=== PATIENT | male | born 1975 | race African-American/Black ===

== ENCOUNTER 2016-12-09 16:46 | Emergency (ER) | payer MEDICAID, OTHER ==
[~2016-12-09] VITALS: Ht 177.8 cm; Wt 113.0 kg
[~2016-12-09 16:46] MED LIST: HYDR12.54 PO
[2016-12-09] MEDS ORDERED: IBUPROFEN 600MG TABLET PO STA (18:28)
[2016-12-09 19:04] LABS: BASOPHILS % 0.8 % (0.0-2.0); EOSINOPHILS % 3.4 % (0.0-5.0); HEMATOCRIT. 43.2 % (42.0-52.0); HEMOGLOBIN. 14.7 g/dL (14.0-18.0); LYMPHOCYTES % 29.8 % (20.0-50.0); MEAN CORPUSCULAR HEMOGLOBIN 29.9 pg (28.0-32.0); MEAN CORPUSCULAR HGB CONC 34.1 g/dL (31.0-37.0); MEAN CORPUSCULAR VOLUME 87.8 fL (80.0-94.0); MEAN PLATELET VOLUME 8.3 fl (7.4-10.4); MONOCYTES % 7.8 % (2.0-8.0); NEUTROPHILS % 58.2 % (40.0-76.0); PLATELET 170 x1000/uL (130-400); RED BLOOD CELL COUNT 4.92 mill/uL (4.7-6.1); RED CELL DISTRIBUTION WIDTH 13.7 % (11.6-14.6); WHITE BLOOD COUNT 9.5 x1000/uL (4.5-11.0)
[2016-12-09 19:15] LABS: ANION GAP 11; CALCIUM 8.8 mg/dL (8.5-10.1); CARBON DIOXIDE 29 mEq/L (21-32); CHLORIDE 103 mEq/L (98-107); INDEX HEMOLYSI 1 (1-3); INDEX ICTERIC 1 (1-4); INDEX LIPEMIC 1 (1-3); UREA NITROGEN BLOOD 13 mg/dL (7-21); eGFR > 60 mL/min (>60)
[2016-12-09 20:45] VITALS: BP 125/87
== END 2016-12-09 20:45 | disposition home or self-care (01) ==
LOC: ER 16:46
DX: F41.0 Panic disorder [episodic paroxysmal anxiety] (principal); F43.0 Acute stress reaction; R11.2 Nausea with vomiting, unspecified; R51 Headache; I10 Essential (primary) hypertension
CPT/HCPCS: 36415; 80048; 85025; 99284

== ENCOUNTER 2017-10-11 11:42 | Emergency (ER) | payer MEDICAID ==
[~2017-10-11] VITALS: Ht 175.3 cm; Wt 127.0 kg
[2017-10-11] MEDS ORDERED: IPRATROPIUM BROMIDE (0.02%) 0.5MG/2.5ML NEB HHN STA (15:10)
[2017-10-11] MEDS ORDERED: ALBUTEROL (0.083%) 2.5MG/3ML NEB HHN STA (15:10)
[2017-10-11 15:42] LABS: BASOPHILS % 0.8 % (0.0-2.0); HEMATOCRIT. 44.9 % (42.0-52.0); LYMPHOCYTES % 30.7 % (20.0-50.0); MEAN CORPUSCULAR HEMOGLOBIN 29.4 pg (28.0-32.0); MEAN CORPUSCULAR VOLUME 88.2 fL (80.0-94.0); MEAN PLATELET VOLUME 7.7 fl (7.4-10.4); NEUTROPHILS % 57.5 % (40.0-76.0); PLATELET 199 x1000/uL (130-400); RED BLOOD CELL COUNT 5.09 mill/uL (4.7-6.1); RED CELL DISTRIBUTION WIDTH 13.7 % (11.6-14.6)
[2017-10-11 16:03] LABS: CARBON DIOXIDE 26 mEq/L (21-32); CHLORIDE 105 mEq/L (98-107)
[2017-10-11 16:10] LABS: TROPONIN I < 0.02 ng/mL (0.00-0.04)
[2017-10-11 17:41] VITALS: BP 131/79
== END 2017-10-11 17:50 | disposition home or self-care (01) ==
LOC: ER 14:41
DX: J06.9 Acute upper respiratory infection, unspecified (principal); R42 Dizziness and giddiness
CPT/HCPCS: 36415; 71045; 80053; 83880; 84484; 85025; 93005; 94640; 99285; J7611

== ENCOUNTER 2019-07-01 10:30 | Emergency (ER) | payer SELFPAY ==
[~2019-07-01] VITALS: Ht 175.3 cm; Wt 125.0 kg
[2019-07-01] MEDS ORDERED: ACETAMINOPHEN 500MG TABLET PO ONE (11:15)
[2019-07-01] MEDS ORDERED: IBUPROFEN 600MG TABLET PO ONE (11:15)
[2019-07-01 11:24] VITALS: BP 171/105
== END 2019-07-01 11:18 | disposition home or self-care (01) ==
LOC: ER 10:30
DX: K04.7 Periapical abscess without sinus (principal); I10 Essential (primary) hypertension
CPT/HCPCS: 99283

== ENCOUNTER 2023-10-29 09:48 | Emergency (ER) | payer SELFPAY ==
[~2023-10-29] VITALS: Ht 175.3 cm; Wt 108.9 kg
[2023-10-29 09:56] VITALS: TEMP 98.6; O2SAT 100
[2023-10-29 11:07] LABS: BASOPHILS % 0.6 % (0.0-2.0); EOSINOPHILS % 0.1 % (0.0-5.0); HEMATOCRIT. 49.9 % (42.0-52.0); HEMOGLOBIN. 16.4 g/dL (14.0-18.0); LYMPHOCYTES % 7.8 % (20.0-50.0); MEAN CORPUSCULAR HEMOGLOBIN 30.7 pg (28.0-32.0); MEAN CORPUSCULAR HGB CONC 32.9 g/dL (31.0-37.0); MEAN CORPUSCULAR VOLUME 93.5 fL (80.0-94.0); MEAN PLATELET VOLUME 7.5 fl (7.4-10.4); MONOCYTES % 2.5 % (2.0-8.0); PLATELET 258 x1000/uL (130-400); RED BLOOD CELL COUNT 5.33 mill/uL (4.7-6.1); RED CELL DISTRIBUTION WIDTH 13.3 % (11.6-14.6); WHITE BLOOD COUNT 15.3 x1000/uL (4.5-11.0)
[2023-10-29 11:10] LABS: ALANINE AMINOTRANSFERASE 45 IU/L (10-49); ALBUMIN 4.7 g/dL (3.2-4.8); ASPARTATE AMINOTRANSFERASE 39 IU/L (<34); BILIRUBIN TOTAL 0.6 mg/dL (0.1-1.0); CALCIUM 9.7 mg/dL (8.7-10.4); CARBON DIOXIDE 20 mEq/L (21-32); CHLORIDE 104 mEq/L (98-107); CREATININE 0.8 mg/dL (0.6-1.3); GLUCOSE 123 mg/dL (70-105); POTASSIUM 3.7 mEq/L (3.5-5.1); PROTEIN TOTAL 8.3 g/dL (6.0-8.3); SODIUM 136 mEq/L (136-145); UREA NITROGEN BLOOD 7 mg/dL (9-23)
[2023-10-29] MEDS ORDERED: FAMOTIDINE 20MG/2ML VIAL IV ONE (12:00)
[2023-10-29] MEDS ORDERED: DICYCLOMINE HCL 10MG/ML 2ML VIAL IM ONE (12:00)
[2023-10-29] MEDS ORDERED: MAGNESIUM/ALUMINUM HYDROXIDE/SIMETHICONE 30ML UDC PO ONE (12:00)
[2023-10-29] MEDS ORDERED: SODIUM CHLORIDE 0.9% 1,000 ML IV ONE (12:00)
[2023-10-29] MEDS ORDERED: ONDANSETRON HCL 4MG/2ML INJ IV ONE (12:00)
[2023-10-29 13:40] LABS: CLARITY URINE CLEAR (CLEAR); COLOR URINE YELLOW (YELLOW); GLUCOSE URINE NEGATIVE (NEGATIVE); KETONES URINE 2+ (NEGATIVE); LEUKOCYTE ESTERASE URINE NEGATIVE (NEGATIVE); NITRITE URINE NEGATIVE (NEGATIVE); OCCULT BLOOD URINE NEGATIVE (NEGATIVE); PH URINE >=9.0 (4.5-8.0); PROTEIN URINE 1+ (NEGATIVE); SPECIFIC GRAVITY URINE 1.025 (1.005-1.030)
[2023-10-29] MEDS ORDERED: KETOROLAC 30MG/ML VIAL IV ONE (13:45)
[2023-10-29] MEDS ORDERED: FAMOTIDINE 20MG/2ML VIAL IV NR (13:49)
[2023-10-29] MEDS ORDERED: MAGNESIUM/ALUMINUM HYDROXIDE/SIMETHICONE 30ML UDC PO NR (13:50)
[2023-10-29] MEDS ORDERED: KETOROLAC 30MG/ML VIAL IV NR (13:50)
[2023-10-29] MEDS ORDERED: ONDANSETRON HCL 4MG/2ML INJ IV NR (13:51)
[2023-10-29 13:58] LABS: HYALINE CASTS URINE 0-5 /lpf; MUCUS URINE 3+ /lpf (NONE/TRACE)
[2023-10-29 13:59] LABS: SQUAMOUS EPITHELIAL CELL URINE FEW /lpf (RARE/1+); WBC URINE 0-2 /hpf (0-2)
[2023-10-29 14:00] LABS: BACTERIA URINE TRACE; CALCIUM OXALATE CRYSTALS URINE 1+ /lpf
[2023-10-29 14:06] VITALS: BP 160/132; PULSE 95; RESP 16
[2023-10-29] MEDS ORDERED: IOHEXOL-300 100 ML BOTTLE ONE (15:19)
== END 2023-10-29 17:08 | disposition home or self-care (01) ==
LOC: ER 09:48
DX: K29.70 Gastritis, unspecified, without bleeding (principal); I10 Essential (primary) hypertension
CPT/HCPCS: 80053; 81003; 83690; 85025; 36415; 74177; 96361; 96372; 96374; 96375; 99285; Q9967; J3490; J1885; J2405; J7030; Z7610 ×2; J0500

== ENCOUNTER 2024-08-04 11:45 | Emergency (ER) | payer MEDICAID, OTHER ==
[~2024-08-04] VITALS: Ht 175.3 cm; Wt 113.4 kg
[~2024-08-04 11:45] MED LIST changes: +AMLO10TA80 PO; +ASPI-1406 PO; +ATOR20TA PO; +CLON0.1T PO; -HYDR12.54 PO; +LORA-249 PO; +MELA3TAB40 PO; +METO25TA6 PO
[2024-08-04 13:17] LABS: CARBON DIOXIDE 23 mEq/L (21-32); CHLORIDE 106 mEq/L (98-107); POTASSIUM 3.2 mEq/L (3.5-5.1); SODIUM 140 mEq/L (136-145)
[2024-08-04 13:18] LABS: BASOPHILS % 0.4 % (0.0-2.0); CALCIUM 9.6 mg/dL (8.7-10.4); EOSINOPHILS % 0.4 % (0.0-5.0); HEMATOCRIT. 44.1 % (42.0-52.0); HEMOGLOBIN. 14.8 g/dL (14.0-18.0); LYMPHOCYTES % 12.9 % (20.0-50.0); MEAN CORPUSCULAR HEMOGLOBIN 30.7 pg (28.0-32.0); MEAN CORPUSCULAR HGB CONC 33.7 g/dL (31.0-37.0); MEAN CORPUSCULAR VOLUME 91.1 fL (80.0-94.0); MEAN PLATELET VOLUME 7.1 fl (7.4-10.4); MONOCYTES % 5.4 % (2.0-8.0); NEUTROPHILS % 80.9 % (40.0-76.0); PLATELET 280 x1000/uL (130-400); RED BLOOD CELL COUNT 4.84 mill/uL (4.7-6.1); RED CELL DISTRIBUTION WIDTH 13.4 % (11.6-14.6); WHITE BLOOD COUNT 13.7 x1000/uL (4.5-11.0)
[2024-08-04 13:22] VITALS: PULSE 88; RESP 18; O2SAT 98
[2024-08-04] MEDS: IPRATROPIUM/ALBUTEROL 0.5-3(2.5)MG/3ML NEB HHN ONE (13:22)
[2024-08-04 13:23] LABS: GLUCOSE 100 mg/dL (70-105); UREA NITROGEN BLOOD 9 mg/dL (9-23)
[2024-08-04] MEDS ORDERED: ALBU18HF2 IH (13:58)
[2024-08-04] MEDS ORDERED: LORA-250 MT (13:58)
[2024-08-04] MEDS ORDERED: P20 PO (13:58)
[2024-08-04 14:37] VITALS: BP 152/90; PULSE 84; RESP 18; TEMP 36.66960; O2SAT 98
== END 2024-08-04 14:38 | disposition home or self-care (01) ==
LOC: ER 11:45
DX: R06.02 Shortness of breath (principal); I10 Essential (primary) hypertension; F12.90 Cannabis use, unspecified, uncomplicated; Z79.899 Other long term (current) drug therapy
CPT/HCPCS: 80048; 85025; 36415; 71045; 94640; 93005; 99285; Z7610 ×3

== ENCOUNTER 2025-08-01 11:17 | Emergency (ER) | payer MEDICAID, OTHER ==
[~2025-08-01] VITALS: Ht 175.3 cm; Wt 109.0 kg
[~2025-08-01 11:17] MED LIST changes: +ALBU18HF2 IH; +LORA-250 MT; +P20 PO
[2025-08-01 11:18] VITALS: O2SAT 100
[2025-08-01 12:09] LABS: BASOPHILS % 0.3 % (0.0-2.0); EOSINOPHILS % 0.1 % (0.0-5.0); HEMATOCRIT. 48.1 % (42.0-52.0); HEMOGLOBIN. 16.2 g/dL (14.0-18.0); LYMPHOCYTES % 9.6 % (20.0-50.0); MEAN PLATELET VOLUME 7.1 fl (7.4-10.4); MONOCYTES % 3.7 % (2.0-8.0); NEUTROPHILS % 86.3 % (40.0-76.0); PLATELET 224 x1000/uL (130-400); RED BLOOD CELL COUNT 5.30 mill/uL (4.7-6.1); RED CELL DISTRIBUTION WIDTH 13.6 % (11.6-14.6)
[2025-08-01 12:22] LABS: CREATININE 0.9 mg/dL (0.6-1.3); UREA NITROGEN BLOOD 8 mg/dL (9-23)
[2025-08-01 12:24] LABS: ASPARTATE AMINOTRANSFERASE 36 IU/L (<34); BILIRUBIN DIRECT 0.2 mg/dL (<=3.0); BILIRUBIN TOTAL 0.7 mg/dL (0.1-1.0); PROTEIN TOTAL 8.3 g/dL (6.0-8.3)
[2025-08-01] MEDS: SODIUM CHLORIDE 0.9% 1,000 ML IV ONE (15:42)
[2025-08-01] MEDS: ONDANSETRON HCL 4MG/2ML INJ IV ONE (15:46)
[2025-08-01] MEDS: KETOROLAC 15MG/ML VIAL IV ONE (15:47)
[2025-08-01] MEDS: ONDANSETRON HCL 4MG/2ML INJ IV NR (15:47)
[2025-08-01] MEDS: KETOROLAC 15MG/ML VIAL IV NR (15:48)
[2025-08-01] MEDS ORDERED: AMOX1TAB16 MT (16:16)
[2025-08-01] MEDS ORDERED: IBUP-1455 MT (16:16)
[2025-08-01 17:04] VITALS: BP 142/92; PULSE 88; RESP 14; TEMP 36.7; O2SAT 100
== END 2025-08-01 17:05 | disposition home or self-care (01) ==
LOC: ER 11:17
DX: K56.699 Other intestinal obstruction unspecified as to partial versus complete obstruction (principal); I10 Essential (primary) hypertension; R10.12 Left upper quadrant pain; F10.90 Alcohol use, unspecified, uncomplicated; Z79.52 Long term (current) use of systemic steroids; Z79.82 Long term (current) use of aspirin; Z79.899 Other long term (current) drug therapy; Y90.9 Presence of alcohol in blood, level not specified
CPT/HCPCS: 80076; 80048; 80320; 83690; 85025; 36415; 74176; 96361; 96374; 96375; 99285; J1885; J2405; J7030; G0480